=== PATIENT | female | born 1955 | race Caucasian/White ===

== ENCOUNTER 2018-05-26 19:44 | Emergency (ER) | payer BC ==
[2018-05-26 19:52] VITALS: BP 135/65
--- NOTE | 2018-05-26 20:01 | UC ---
Respiratory Complaint HPI - HPI Summary HPI Summary: 63 yo female presents with cough and fever for the last 2 days. She tells me that her daughter was sick with similar symptoms later last week and is starting to feel better now. Over the last 2 days pt has had a fever of around 101F that improves with tylenol. She also has a dry cough and feels some pain in her chest when she coughs. She has not smoked in 30+ years. Denies sinus symptoms, sore throat, SOB, chest pain, rash, n/v. - History of Current Complaint Chief Complaint: UCRespiratory Stated Complaint: COUGH, AND CHEST CONGESTION Time Seen by Provider: 05/26/18 20:01 Hx Obtained From: Patient Onset/Duration: Sudden Onset Severity Initially: Moderate Severity Currently: Moderate Pain Intensity: 7 Pain Scale Used: 0-10 Numeric Character: Cough: Nonproductive - Allergies/Home Medications Allergies/Adverse Reactions: Allergies Allergy/AdvReac Type Severity Reaction Status Date / Time doxycycline Allergy GI ISSUES Verified 05/26/18 19:53 erythromycin base Allergy GI Upset Verified 05/26/18 19:53 Home Medications: Home Medications Acetaminophen [Acetaminophen Extra Strength] 2 tab PO ONCE PRN 05/26/18 [ History Confirmed 05/26/18] Calcium Carbonate [Calcium] 500 mg PO DAILY 05/26/18 [History Confirmed 05/26/18 ] Multivitamin [Multivitamins] 1 each PO 05/26/18 [History] PMH/Surg Hx/FS Hx/Imm Hx Endocrine History: Dyslipidemia - Surgical History Surgical History: Yes Surgery Procedure, Year, and Place: x2. TONSILLECTOMY A CHILD. R BREAST BX X2 06/12, 07/10. R BREAST LUMPECTOMY WITH SLN BX, EXC [facility] 08/10 - Family History Known Family History: Positive: None - Social History Occupation: Employed Full-time Lives: With Family Alcohol Use: Occasionally Alcohol Amount: 3 Substance Use Type: None Smoking Status (MU): Former Smoker Type: Cigarettes Length of Time of Smoking/Using Tobacco: 10 YRS Have You Smoked in the Last Year: No When Did the Patient Quit Smoking/Using Tobacco: 1985 Review of Systems All Other Systems Reviewed And Are Negative: Yes Constitutional: Positive: Fever Skin: Positive: Negative Eyes: Positive: Negative ENT: Positive: Negative Respiratory: Positive: Cough Cardiovascular: Positive: Negative Neurovascular: Positive: Negative Neurological: Positive: Negative Psychological: Positive: Negative Physical Exam - Summary Physical Exam Summary: GENERAL: NAD. WDWN. No pain distress. SKIN: No rashes, sores, lesions, or open wounds. HEENT: Head: AT/NC Eyes: EOM intact. Conjunctiva clear without inflammation or discharge. Ears: Hearing grossly normal. TMs intact, no bulging, erythema, or edema. Nose: Nasal mucosa pink and moist. NTTP maxillary and frontal sinus. Throat: Posterior oropharynx without exudates, erythema, or tonsillar enlargement. Uvula midline. NECK: Supple. Nontender. No lymphadenopathy. CHEST: CTAB. No r/r/w. No accessory muscle use. Breathing comfortably and in no distress. CV: RRR. Without m/r/g. Pulses intact. Cap refill <2seconds NEURO: Alert. PSYCH: Age appropriate behavior. Triage Information Reviewed: Yes Vital Signs: Initial Vital Signs Temp 100.3 F 05/26/18 19:49 Pulse 99 05/26/18 19:49 Resp 16 05/26/18 19:49 BP 135/65 05/26/18 19:49 Pulse Ox 96 05/26/18 19:49 Laboratory Tests 05/26/18 20:20 Influenza A (Rapid) Negative Influenza B (Rapid) Negative Vital Signs Reviewed: Yes UC Diagnostic Evaluation - Laboratory O2 Sat by Pulse Oximetry: 96 Respiratory Course/Dx - Course Course Of Treatment: POC flu negative. Although I do not appreciate any abnormalities on her lung exam, I encouraged pt to get a CXR with concern for PNA given her fever, pain with coughing, and slightly low end of normal O2% - pt declined. She also declined anbx treatment for PNA at this time. She wishes to continue taking tylenol and OTC medication. I advised her that if her symptoms worsen or do not improve in the next 2-3 days to be rechecked. Pt voiced understanding. - Differential Dx/Diagnosis Provider Diagnosis: Cough, Fever Discharge - Sign-Out/Discharge Documenting (check all that apply): Patient Departure All imaging exams completed and their final reports reviewed: No Studies - Discharge Plan Condition: Stable Disposition: HOME Patient Education Materials: Viral Syndrome (ED) Referrals: Oscar Chu MD [Primary Care Provider] - Additional Instructions: If you develop a fever, shortness of breath, chest pain, new or worsening symptoms - please call your PCP or go to the ED. - Billing Disposition and Condition Condition: STABLE Disposition: Home - Attestation Statements Provider Attestation: I was available for consult. This patient was seen by the BRUNILDA. The patient was not presented to, seen by, or examined by me. -Leonila
[2018-05-26 20:33] LABS: Influenza A Molecular NEGATIVE (Negative); Influenza B Molecular NEGATIVE (Negative)
== END 2018-05-26 20:50 | disposition home or self-care (01) ==
LOC: UCEAST 19:44
DX: R05 Cough (principal); R50.9 Fever, unspecified; R09.89 Other specified symptoms and signs involving the circulatory and respiratory systems; R07.9 Chest pain, unspecified; Z87.891 Personal history of nicotine dependence; Z88.1 Allergy status to other antibiotic agents
CPT/HCPCS: 99211; G0463

== ENCOUNTER 2019-04-18 17:24 | Emergency (ER) | payer BC ==
[2019-04-18 17:35] VITALS: BP 134/57
--- NOTE | 2019-04-18 17:51 | UC ---
Complaint Female HPI - HPI Summary HPI Summary: PATIENT HAS A HISTORY OF RECURRENT UTI AND FOLLOWS WITH DR. NARVAEZ WITH UROLOGY. COMES IN TODAY WITH SEVERAL DAYS OF DYSURIA, FREQUENCY AND URGENCY. NO FEVER , NAUSEA, BACK PAIN. - History Of Current Complaint Chief Complaint: UCGU Stated Complaint: URINARY ISSUE Time Seen by Provider: 04/18/19 17:43 Hx Obtained From: Patient Onset/Duration: Gradual Onset, Lasting Days, Still Present Severity Initially: Moderate Severity Currently: Moderate Pain Intensity: 3 Pain Scale Used: 0-10 Numeric Character: Burning Aggravating Factor(s): Urination Alleviating Factor(s): Nothing Associated Signs And Symptoms: Negative: Fever, Back Pain, Vaginal Bleeding/ Discharge, Nausea - Allergies/Home Medications Allergies/Adverse Reactions: Allergies Allergy/AdvReac Type Severity Reaction Status Date / Time doxycycline Allergy GI ISSUES Verified 04/18/19 17:35 erythromycin base Allergy GI Upset Verified 04/18/19 17:35 PMH/Surg Hx/FS Hx/Imm Hx Endocrine History: Dyslipidemia Cancer History: Breast Cancer - Surgical History Surgical History: Yes Surgery Procedure, Year, and Place: x2. TONSILLECTOMY A CHILD. R BREAST BX X2 06/12, 07/10. R BREAST LUMPECTOMY WITH SLN BX, EXC [facility] 08/10 - Family History Known Family History: Positive: None - Social History Alcohol Use: Occasionally Alcohol Amount: 3 Substance Use Type: None Smoking Status (MU): Former Smoker Type: Cigarettes Length of Time of Smoking/Using Tobacco: 10 YRS Have You Smoked in the Last Year: No When Did the Patient Quit Smoking/Using Tobacco: 1985 Review of Systems All Other Systems Reviewed And Are Negative: Yes Constitutional: Positive: Negative Respiratory: Positive: Negative Cardiovascular: Positive: Negative Gastrointestinal: Positive: Negative Genitourinary: Positive: Dysuria, Frequency, Urgency Physical Exam Triage Information Reviewed: Yes Appearance: Well-Appearing, No Pain Distress, Well-Nourished Vital Signs: Initial Vital Signs Temp 98.7 F 04/18/19 17:30 Pulse 82 04/18/19 17:30 Resp 18 04/18/19 17:30 BP 134/57 04/18/19 17:30 Pulse Ox 97 04/18/19 17:30 Laboratory Tests 04/18/19 17:55 POC Urine Color Yellow POC Urine Clarity Clear POC Urine pH 6.0 POC Ur Specif [place] <= 1.005 L POC Urine Protein Negative POC Ur Glucose (UA) Negative POC Urine Ketones Negative POC Urine Blood 3+ A POC Urine Nitrite Negative POC Urine Bilirubin Negative POC Urine Urobilinogen 0.2 POC U Leukocyte Esteras 1+ A Vital Signs Reviewed: Yes Eyes: Positive: Conjunctiva Clear ENT: Positive: Hearing grossly normal Neck: Positive: Supple Respiratory: Positive: No respiratory distress, No accessory muscle use Cardiovascular: Positive: Pulses Normal Abdomen Description: Positive: Nontender, Soft. Negative: CVA Tenderness (R), CVA Tenderness (L), Distended, Guarding Musculoskeletal: Positive: No Edema Neurological: Positive: Alert Psychological: Positive: Age Appropriate Behavior Skin: Negative: Rashes Complaint Female Dx - Course Course Of Treatment: URINE DIP SUGGESTIVE OF UTI. WILL COVER WITH CIPRO TWICE DAILY FOR 5 DAYS. DISCUSSED BLACK BOX WARNING ASSOCIATED WITH FLUOROQUINOLONES. PATIENT STATES SHE HAS TAKEN THIS MEDICATION IN THE PAST WITH GOOD EFFECT AND WOULD LIKE TO USE IT AGAIN TODAY. ADVISED TO STAY WELL-HYDRATED AND TO FOLLOW-UP WITH DR. NARVAEZ. - Differential Dx/Diagnosis Provider Diagnosis: UTI (urinary tract infection) Discharge ED - Sign-Out/Discharge Documenting (check all that apply): Patient Departure All imaging exams completed and their final reports reviewed: No Studies - Discharge Plan Condition: Stable Disposition: HOME Prescriptions: Ciprofloxacin TAB* [Cipro 500 MG TAB*] 500 mg PO BID #8 tab Patient Education Materials: Urinary Tract Infection in Women (ED) Referrals: Oscar Chu MD [Primary Care Provider] - If Needed Patrick Narvaez MD [Medical Doctor] - 2 Weeks Additional Instructions: URINE DIP SUGGESTIVE OF UTI. WILL COVER WITH CIPRO TWICE DAILY FOR 5 DAYS. STAY WELL HYDRATED. OTC AZO IF NEEDED FOR DISCOMFORT. SPECIMEN HAS BEEN SENT FOR CULTURE AND WE WILL CALL YOU IF YOUR MEDICATION NEEDS TO BE CHANGED. FOLLOW -UP WITH DR. NARVAEZ. - Billing Disposition and Condition Condition: STABLE Disposition: Home
[2019-04-18] MEDS ORDERED: Ciprofloxacin TAB* 500 MG PO ONE ×2 (18:03→18:04)
== END 2019-04-18 18:20 | disposition home or self-care (01) ==
LOC: UCEAST 17:24
DX: N39.0 Urinary tract infection, site not specified (principal); Z85.3 Personal history of malignant neoplasm of breast; Z87.891 Personal history of nicotine dependence; Z88.1 Allergy status to other antibiotic agents
CPT/HCPCS: 81003; 87077; 87086; 87186; 99212; A9270-GY; G0463